=== PATIENT | male | born 1965 | race Caucasian/White ===

== ENCOUNTER 2021-10-20 12:20 | Outpatient (CLI) | payer OTHER ==
[2021-10-20 21:07] LABS: SARS-CoV-2 PCR by NAA Not Detected (NotDetected)
== END 2021-10-20 12:21 | disposition home or self-care (01) ==
LOC: CSHLAB 12:20
PROVIDERS: ATTEND Internal Medicine Gastroenterology
DX: Z20.822 Contact with and (suspected) exposure to COVID-19 (principal); K63.5 Polyp of colon
CPT/HCPCS: U0003; U0005

== ENCOUNTER 2021-10-25 07:18 | Day surgery (SDC) | payer OTHER ==
[2021-10-14 11:34] VITALS: BMI 30.7
[2021-10-25] MEDS ORDERED: Lidocaine 1% MPF 2 ML VIAL ONE (07:55)
[2021-10-25] MEDS ORDERED: PROPOFOL 20 ML ONE ×2 (09:32)
== END 2021-10-25 10:49 | disposition home or self-care (01) ==
LOC: CSHSDC 07:18
PROVIDERS: ATTEND Internal Medicine Gastroenterology
PROC: 0DBP8ZZ Excision of Rectum, Via Natural or Artificial Opening Endoscopic (ICD-10-PCS; principal; 2021-10-25)
DX: Z12.11 Encounter for screening for malignant neoplasm of colon (principal); K63.5 Polyp of colon; I10 Essential (primary) hypertension; E11.9 Type 2 diabetes mellitus without complications
CPT/HCPCS: 88305; J2704